=== PATIENT | female | born 1995 | race Caucasian/White ===

== ENCOUNTER → 2016-06-24 | Outpatient (CLI) | payer BC ==
[~2016-06-24] MED LIST: BENTYL20 MG PO; NAPROSYN500 MG PO; ONDANSETRON HCL4 M2 PO; PROBIOTIC1 EAC1 PO; ZANTAC 150MG T150 MG PO
== END ==
LOC: ULTRA 14:17
DX: R10.9 Unspecified abdominal pain (principal); R06.2 Wheezing; N83.209 Unspecified ovarian cyst, unspecified side; R05 Cough

== ENCOUNTER → 2017-05-19 | Outpatient (CLI) | payer BC ==
[~2017-05-19] MED LIST changes: +BRINTELLIX5 MG PO; +DEPAKOTE 250MG250 M1
== END ==
LOC: ULTRA 14:23
DX: R10.32 Left lower quadrant pain (principal); R10.2 Pelvic and perineal pain

== ENCOUNTER → 2017-05-22 | Outpatient (CLI) | payer BC | LOC: CAT 14:37 | DX: R10.31 Right lower quadrant pain (principal); R10.32 Left lower quadrant pain ==

== ENCOUNTER 2017-11-12 | Emergency (ER) | payer BC, OTHER ==
[~2017-11-12] VITALS: Ht 162.6 cm; Wt 107.0 kg
[~2017-11-12] MED LIST changes: -BRINTELLIX5 MG PO; -DEPAKOTE 250MG250 M1
[2017-11-12] MEDS ORDERED: DEPAKOTE 250MG250 M1 (00:15)
[2017-11-12] MEDS ORDERED: BRINTELLIX5 MG PO (00:16)
[2017-11-12 01:31] LABS: URINE BILIRUBIN NEGATIVE (Negative); URINE BLOOD 2+ (Negative); URINE CLARITY CLOUDY; URINE COLOR YELLOW; URINE GLUCOSE-RANDOM* NEGATIVE (Negative); URINE KETONES NEGATIVE (Negative); URINE LEUKOCYTES-REFLEX NEGATIVE (Negative); URINE NITRITE-REFLEX NEGATIVE (Negative); URINE PROTEIN (DIPSTICK) NEGATIVE (Negative); URINE SPECIFIC GRAVITY >= 1.030 (1.005-1.035); URINE UROBILINOGEN 0.2 E.U./dl (0.2-1.0)
[2017-11-12 01:41] LABS: AMORPHOUS URATES Moderate /LPF (None Seen); CASTS None Seen /LPF (None Seen); CRYSTALS None Seen /LPF (None Seen); MUCUS 0-3 Light strn/LPF (None Seen); SQUAMOUS 4-10 Moderate /LPF (0-3); TRANSITIONAL EPITHEL CELL 0-3 Few /LPF (None Seen); URINE RBC 0-2 Rare /HPF (0-2); URINE WBC-REFLEX 0-5 Rare /HPF (0-5)
[2017-11-12 04:45] VITALS: BP 123/75
== END 2017-11-12 04:47 | disposition home or self-care (01) ==
LOC: ER
PROVIDERS: Emergency Medicine
DX: N93.9 Abnormal uterine and vaginal bleeding, unspecified (principal); R10.2 Pelvic and perineal pain; F17.210 Nicotine dependence, cigarettes, uncomplicated

== ENCOUNTER → 2018-06-07 | Outpatient (CLI) | payer OTHER ==
[~2018-06-07] MED LIST changes: +BRINTELLIX5 MG PO; +DEPAKOTE 250MG250 M1
== END ==
LOC: ULTRA 16:02
DX: N83.9 Noninflammatory disorder of ovary, fallopian tube and broad ligament, unspecified (principal); R10.31 Right lower quadrant pain; R10.32 Left lower quadrant pain

== ENCOUNTER 2018-06-26 17:56 | Emergency (ER) | payer OTHER ==
[~2018-06-26] VITALS: Ht 160 cm; Wt 108.9 kg
[2018-06-26 18:39] LABS: BASOPHILS 0.6 % (0.0-2.0); EOSINOPHILS 2.2 % (0.0-3.0); HEMATOCRIT 38.6 % (37.0-47.0); HEMOGLOBIN 12.9 gm/dL (12.0-15.0); LYMPHOCYTES 22.5 % (24.0-44.0); MCH 27.9 pg (26.0-34.0); MCHC 33.4 g/dL (28.0-37.0); MCV 83.5 fL (80.0-100.0); MONOCYTES 5.3 % (1.0-8.0); PLATELET COUNT 261 thou/uL (150-400); POLYS 69.4 % (36.0-66.0); RBC 4.63 mil/uL (4.20-5.00); RDW 13.1 % (10.5-14.5)
[2018-06-26 18:49] LABS: ANION GAP 13 mmol/L (7-16); BUN 16 mg/dL (7-18); CHLORIDE 104 mmol/L (98-107); CO2 23 mmol/L (21-32); CREATININE 0.8 mg/dL (0.6-1.0); GLUCOSE 88 mg/dL (74-106); POTASSIUM 3.8 mmol/L (3.5-5.1); SODIUM 140 mmol/L (136-145)
[2018-06-26 18:56] LABS: URINE BILIRUBIN NEGATIVE (Negative); URINE BLOOD NEGATIVE (Negative); URINE CLARITY CLEAR; URINE COLOR YELLOW; URINE GLUCOSE-RANDOM* NEGATIVE (Negative); URINE KETONES NEGATIVE (Negative); URINE LEUKOCYTES-REFLEX NEGATIVE (Negative); URINE NITRITE-REFLEX NEGATIVE (Negative); URINE PROTEIN (DIPSTICK) NEGATIVE (Negative); URINE SPECIFIC GRAVITY >= 1.030 (1.005-1.035); URINE UROBILINOGEN 0.2 E.U./dl (0.2-1.0)
[2018-06-26 18:56] LABS: ALBUMIN 3.6 g/dL (3.4-5.0); SALICYLATE < 2.8 mg/dL (2.8-20.0); SGOT 17 U/L (15-37); SGPT 23 U/L (30-65); TOTAL PROTEIN 7.7 g/dL (6.4-8.2)
[2018-06-26 19:01] LABS: AMP/METHAMP Negative (Negative); BARBITURATES Negative (Negative); BENZODIAZEPINES Negative (Negative); COCAINE Negative (Negative); METHADONE Negative (Negative); OPIATES Negative (Negative); PCP Negative (Negative)
[2018-06-26 19:07] LABS: TOTAL BILIRUBIN < 0.1 mg/dL (<0.1-1.0)
[2018-06-27 12:15] VITALS: BP 126/57
== END 2018-06-27 12:20 ==
LOC: ER 17:56
PROVIDERS: Physician Assistant
DX: R45.851 Suicidal ideations (principal); F17.200 Nicotine dependence, unspecified, uncomplicated